=== PATIENT | female | born 1985 | race American Indian/Alaskan Native ===

== ENCOUNTER 2019-02-27 07:59 | Emergency (ER) | payer BC, MEDICAID ==
[2019-02-27 08:15] VITALS: BP 150/100
[2019-02-27] MEDS ORDERED: TORADOL IM ONE (09:07)
[2019-02-27] MEDS ORDERED: DECADRON IM ONE (09:07)
--- NOTE | 2019-02-27 09:33 | Emergency Department Report ---
ED Back Pain/Injury HPI - General Chief Complaint: Back Pain/Injury Stated Complaint: BACK PAIN Time Seen by Provider: 02/27/19 08:55 Source: patient Limitations: No Limitations - History of Present Illness Initial Comments: This is a 33-year-old female with a history of high blood pressure control medication and a history of of back pain presents to ED complaining of left-side d lower buttock/back pain that occurred about 3 days ago while she was lifting her daughter. She says she is also similarly recent trauma to the back. She just patient's intermittent in nature and worsens with movement and bending. She denies fevers/dysuria/abdominal pain MD Complaint: back pain Similar Symptoms Previously: Yes Place: home Radiation: none Severity: mild Severity scale (0 -10): 4 Quality: aching Consistency: intermittent Worsens With: movement Context: while lifting Associated Symptoms: denies other symptoms. denies: weakness, chest pain, numbness, difficulty walking - Related Data Previous Rx's Medication Instructions Recorded Last Taken Type HYDROcodone/APAP 5-325 [[place] 1 each PO Q6HR PRN #30 tablet 02/27/16 Unknown Rx 5/325] Ibuprofen [Motrin] 600 mg PO Q6H PRN #30 tablet 02/27/16 Unknown Rx Vit-Fe Fumar-FA [ 1 tab PO QDAY #30 tablet 02/27/16 Unknown Rx Vitamin] Labetalol [Normodyne TAB] 200 mg PO BID #60 tablet 02/28/16 Unknown Rx Allergies Allergy/AdvReac Type Severity Reaction Status Date / Time No Known Allergies Allergy Verified 07/26/15 21:39 ED Review of Systems ROS: Stated complaint: BACK PAIN Other details as noted in HPI ED Past Medical Hx - Past Medical History Previous Medical History?: Yes Hx Hypertension: No Hx Congestive Heart Failure: No Hx Diabetes: No Hx Deep Vein Thrombosis: No Hx Renal Disease: No Hx Sickle Cell Disease: No Hx Seizures: No Hx Asthma: No Hx COPD: No Hx HIV: No Additional medical history: Hx of "blood clot" in neck resulting in spinal surgery. - Surgical History Past Surgical History?: Yes Additional Surgical History: Spinal surgery April 2018 - Social History Smoking Status: Never Smoker Substance Use Type: None - Medications Home Medications: Home Medications Medication Instructions Recorded Confirmed Last Taken Type HYDROcodone/APAP 5-325 [[place] 1 each PO Q6HR PRN #30 tablet 02/27/16 Unknown Rx 5/325] Ibuprofen [Motrin] 600 mg PO Q6H PRN #30 tablet 02/27/16 Unknown Rx Vit-Fe Fumar-FA [ 1 tab PO QDAY #30 tablet 02/27/16 Unknown Rx Vitamin] Labetalol [Normodyne TAB] 200 mg PO BID #60 tablet 02/28/16 Unknown Rx ED Physical Exam - General Limitations: No Limitations General appearance: alert, in no apparent distress - Head Head exam: Present: atraumatic, normocephalic - Eye Eye exam: Present: normal appearance - ENT ENT exam: Present: mucous membranes moist - Neck Neck exam: Present: normal inspection - Respiratory Respiratory exam: Present: normal lung sounds bilaterally. Absent: respiratory distress - Cardiovascular Cardiovascular Exam: Present: regular rate, normal rhythm. Absent: systolic murmur, diastolic murmur, rubs, gallop - GI/Abdominal GI/Abdominal exam: Present: soft, normal bowel sounds - Extremities Exam Extremities exam: Present: normal inspection - Back Exam Back exam: Present: normal inspection, full ROM, tenderness (to palpation of the lower latissimus dorsi muscle on the left side), other (no spinal tenderness noted). Absent: CVA tenderness (R), CVA tenderness (L) - Neurological Exam Neurological exam: Present: alert, oriented X3, normal gait - Psychiatric Psychiatric exam: Present: normal affect, normal mood - Skin Skin exam: Present: warm, dry, intact, normal color. Absent: rash ED Course Vital Signs 02/27/19 02/27/19 08:12 09:19 Temperature 98.4 F Pulse Rate 100 H Respiratory 18 18 Rate Blood Pressure 150/100 O2 Sat by Pulse 96 Oximetry ED Medical Decision Making - Medical Decision Making 33-year-old female presents with acute on chronic back spasm pain. Patient was seen in urgent care 2 days ago was given Flexeril and pain prescription. Discussed the patient to continue taking her medication. Discussed patient for MRI which with by orthopedic doctor. Orthopedic doctor referral given to patient discussed a follow-up. Pain relieved with Toradol and Decadron IM given in ED. Tetanus is normal patient is in no acute distress she understands instructions to follow-up. Critical care attestation.: If time is entered above; I have spent that time in minutes in the direct care of this critically ill patient, excluding procedure time. ED Disposition Clinical Impression: Back muscle spasm, Low back strain Disposition: TO HOME OR SELFCARE Is pt being admited?: No Does the pt Need Aspirin: No Condition: Stable Instructions: Muscle Strain (ED), Lumbar Radiculopathy (ED) Additional Instructions: Make sure to follow up with the primary care physician as discussed. Continue to Take all your medications as you've been prescribed by the Urgent care doctor saw 2 days ago If you have any worsening symptoms or develop new symptoms please return to ED immediately. Referrals: HODA CLARKE MD [Primary Care Provider] - 3-5 Days GENOVEVA MATSON MD [Staff Physician] - 3-5 Days Forms: Work/School Release Form(ED) Time of Disposition: 09:36
== END 2019-02-27 09:49 | disposition home or self-care (01) ==
LOC: ED 07:59
DX: S39.012A Strain of muscle, fascia and tendon of lower back, initial encounter (principal); M62.830 Muscle spasm of back; I10 Essential (primary) hypertension; X50.0XXA Overexertion from strenuous movement or load, initial encounter; Y93.89 Activity, other specified; Y92.098 Other place in other non-institutional residence as the place of occurrence of the external cause; Y99.8 Other external cause status
CPT/HCPCS: 96372; 99282; J1100; J1885